=== PATIENT | female | born 1995 | race Caucasian/White ===

== ENCOUNTER 2018-11-13 00:07 | Outpatient (CLI) | payer OTHER ==
[~2018-11-13] VITALS: Ht 167.6 cm; Wt 86.0 kg
[2018-11-13 00:24] VITALS: BP 128/84
[2018-11-13] MEDS ORDERED: PRENTAB9 PO (00:27)
[2018-11-14] MEDS ORDERED: DIBU10OI TOP (17:41)
[2018-11-14] MEDS ORDERED: COLA100C5 PO (17:41)
[2018-11-14] MEDS ORDERED: ACET-683 PO (17:41)
[2018-11-14] MEDS ORDERED: IBUP80TA PO (17:41)
== END 2018-11-13 02:30 | disposition home or self-care (01) ==
LOC: M LDO 00:07
PROVIDERS: ATTEND Obstetrics & Gynecology
DX: O26.893 Other specified pregnancy related conditions, third trimester (principal); R10.30 Lower abdominal pain, unspecified; O26.853 Spotting complicating pregnancy, third trimester; Z3A.40 40 weeks gestation of pregnancy
CPT/HCPCS: 59025; G0378; G0463

== ENCOUNTER 2018-11-13 13:55 | Inpatient (IN) | payer OTHER ==
[~2018-11-13] VITALS: Ht 167.6 cm; Wt 85.9 kg
[2018-11-13] VITALS (10 sets, daily range): BP systolic 113–148; BP diastolic 59–88
[~2018-11-13 13:55] MED LIST: PRENTAB9 PO
[2018-11-13] MEDS ORDERED: LACTATED RINGER'S 1000 ML IV ONE (14:30)
[2018-11-13] MEDS ORDERED: LR 1,000 ML IV SCH (14:30)
--- NOTE | 2018-11-13 14:49 | HPE ---
DATE OF ADMISSION: 11/13/2018 HISTORY: This lady is a 23-year-old 5, para 1, abortus 3, last menstrual period (LMP) 02/15/2018, estimated date of confinement (EDC) 11/10/2018, at 40 and 4 weeks of gestation with history of having her membranes stripped and having [place] contractions. No vaginal bleeding or vaginal loss. PAST HISTORY: Spontaneous times three. 2015 at 40 weeks, 8 pounds 7 ounces male, induction of labor because of oligohydramnios. LABORATORY DATA: B positive, hepatitis negative, rubella immune. Varicella immune. Pap normal. Urine negative. Gonorrhea and chlamydia negative. 1-hour glucose 113 and group B Streptococcus (GBS) is negative. Blood pressure 124/84, respirations 16, pulse 116, temperature 97.9. Urine 10/20, pH 6 and negative. On examination, no distress. Symphysis fundus height is 40, vertex, category one strip, accelerations noted. No decelerations. Minimal contractions. Baseline variability was normal. Stretchy, 2 cm posterior, 50%, -3 station. The patient is not active labor, having [place] with a category one strip. Has a booked induction of labor on 11/17/2018. Discharge instructions were given and the patient was discharged undelivered.
[2018-11-13] MEDS ORDERED: FENTANYL 2MCG/ML ROPIVACAINE 0.2% IN 0.9% NACL 100ML IVBAG As Ordered ONE (14:54)
[2018-11-13 14:55] LABS: HEMATOCRIT 36.4 % (36.0-47.0); HEMOGLOBIN 12.1 g/dl (12.0-15.5); MEAN CORPUSCULAR HEMOGLOBIN 29.6 pg (27.0-33.0); MEAN CORPUSCULAR HGB CONC 33.2 g/dl (32.0-36.5); PLATELET COUNT, AUTOMATED 198 10^3/uL (150-450); RED BLOOD COUNT 4.09 10^6/uL (4.00-5.40); WHITE BLOOD COUNT 18.9 10^3/uL (4.0-10.0)
[2018-11-13] MEDS ORDERED: OXYTOCIN 30 UNITS IN 0.9% NaCl 500ML IV BAG (J2590) As Ordered ONE (15:06)
[2018-11-13] MEDS ORDERED: REFRIGERATOR IV KEYS XX PRN (16:15)
[2018-11-13] MEDS ORDERED: EPIDURAL/PCA KEYS XX PRN (16:15)
[2018-11-13] MEDS ORDERED: NALOXONE INJ 0.4 MG/1 ML VIAL (J2310) IV PRN (16:15)
[2018-11-13] MEDS ORDERED: ePHEDrine SULFATE 25 MG/5 ML(5MG/ML) SYRINGE IV PRN (16:15)
[2018-11-13] MEDS ORDERED: ONDANSETRON 4MG/2ML VIAL (J2405) IV PRN (16:15)
[2018-11-13] MEDS ORDERED: EPIDURAL COMMENT XX SCH (16:15)
[2018-11-13] MEDS ORDERED: OXYTOCIN DRIP 30 UNITS in APPROPRIATE DILUENT 1 EA IV SCH ×2 (16:15→18:00)
[2018-11-13] MEDS ORDERED: diphenhydrAMINE INJ 50MG/ML VIAL (J1200) IV PRN (16:15)
[2018-11-13] MEDS ORDERED: LACTATED RINGER'S 1000 ML IV PRN (16:15)
[2018-11-13] MEDS ORDERED: FENTANYL/ROPIVACAINE/NACL BAG 100 ML EPIDURAL SCH (16:15)
[2018-11-13 17:36] LABS: CORD GAS HCO3 V 22.3 MEQ/L; CORD GAS O2 SAT V 72.9 %; CORD GAS PCO2 V 40.9 mmHg; CORD GAS PH V 7.354 UNITS; CORD GAS PO2 V 32.4 mmHg; CORD GAS SBC V 21.3 MEQ/L; CORD GAS TCO2 V 23.5 MEQ/L
[2018-11-13 17:39] LABS: CORD GAS HCO3 A 25.5 MEQ/L; CORD GAS O2 SAT A 25.7 %; CORD GAS PCO2 A 65.6 mmHg; CORD GAS PH A 7.208 UNITS; CORD GAS PO2 A 17.3 mmHg; CORD GAS SBC A 19.5 MEQ/L; CORD GAS TCO2 A 27.5 MEQ/L
[2018-11-13] MEDS ORDERED: MOM 30ML SUSPENSION UDC PO PRN (17:45)
[2018-11-13] MEDS ORDERED: METHYLERGONOVINE MALEATE 0.2 MG TAB PO PRN (17:45)
[2018-11-13] MEDS ORDERED: IBUPROFEN 800 MG TAB PO PRN (17:45)
[2018-11-13] MEDS ORDERED: ACETAMINOPHEN TAB 650MG DOSE (2X325MG) PO PRN (17:45)
[2018-11-13] MEDS ORDERED: OXYTOCIN INJ 10 UNITS/ML VIAL (J2590) IV ONE (17:45)
[2018-11-13] MEDS ORDERED: RHOGAM 300 MCG (1500 IU) INJ (J2790) IM SCH (17:45)
[2018-11-13] MEDS ORDERED: DOCUSATE SODIUM 100 MG CAP PO PRN (17:45)
[2018-11-13] MEDS ORDERED: ANUSOL HC CREAM 30GM TOP PRN (17:45)
[2018-11-13] MEDS ORDERED: DIBUCAINE 1% OINTMENT 30GM TOP PRN (17:45)
[2018-11-13] MEDS ORDERED: miSOPROStol 100 MCG TAB (S0191) PR ONE (17:45)
[2018-11-13] MEDS ORDERED: MEASLES,MUMPS,RUBELLA VACCINE INJ (MMR-II) (90707) SC SCH (17:45)
[2018-11-13] MEDS ORDERED: IBUPROFEN 600 MG TAB PO PRN (17:45)
[2018-11-13] MEDS: ACETAMINOPHEN 500 MG TAB PO PRN (20:15)
--- NOTE | 2018-11-13 23:44 | HPE ---
DATE OF ADMISSION: 11/13/2018 This is a 23-year-old 5, para 1, aborta 3, last menstrual period (LMP) 02/15/2018, estimated date of confinement (EDC) 11/10/2018 at 40 and 5 of gestation, had a history of stripping membranes on Wednesday, had some [place] contractions. Presently, she is in active labor with spontaneous rupture of membranes clear liquid noon today. On pelvic examination, she is 5 cm at 70% effaced, vertex -3 station. PAST HISTORY: Spontaneous times 2014 at 40 weeks, 8 pounds 7 ounces male induced for an oligohydramnios. Labs are B+, hepatitis negative. Rubella immune. Varicella immune. Pap normal. Urine negative. Gonorrhea and chlamydia are negative. 1-hour glucose 113. GBS is negative. On examination, she is in significant distress. Category one strip. Blood pressure is 137/80, respirations 18, pulse 142, temperature 98.4. Plan of management from here is hydrate the patient, epidural as necessary and anticipate vaginal delivery. The patient accepts the risks and benefits of laboring and vaginal delivery as outlined with increased risk of hemorrhage, infection, increased risk of tachysystole, uterine rupture and the possibility of the baby ending up in the NICU. The rest examination unremarkable. Normocephalic, atraumatic. Neck: Full range of motion. Pupils equal and reactive to light. Distal pulses symmetric. No evidence of deep vein thrombosis (DVT), pulmonary emboli (PE) or superficial phlebitis. Chest is clear bilaterally bases. No wheezes or rhonchi. No costovertebral angle (CVA) tenderness. Abdomen soft. Uterus is not hard. Four quadrant bowel sounds are noted. Pelvic exam as mentioned. No evidence of deep vein thrombosis (DVT), pulmonary emboli (PE), superficial phlebitis. No nausea, vomiting, diarrhea or constipation. No shortness of breath. No arthralgia, myalgia or complaints of joint pain. We anticipate a precipitous delivery and will implement precautions as necessary.
[2018-11-14] MEDS ORDERED: OXYTOCIN INJ 10 UNITS/ML VIAL (J2590) As Ordered ONE (03:54)
[2018-11-14] MEDS ORDERED: miSOPROStol 200 MCG TAB (S0191) As Ordered ONE (03:54)
[2018-11-14] MEDS: ACETAMINOPHEN 500 MG TAB PO PRN (05:07)
--- NOTE | 2018-11-14 05:39 | IPN ---
DATE OF VISIT: 11/13/2018 This lady was admitted at 5 cm dilatation with active labor. After epidural her contractions spaced out to 5-7-8 minutes apart, category I strip. EXAMINATION: On examination she was about 7-8 cm, definitely ruptured membranes, vertex well applied to the cervix in the occiput anterior (OA)position. We are going to augment with Pitocin and anticipate vaginal delivery. Category I strip. The patient expressed understanding of the plan of care. cc: US[employer]IENCE DES[employer] Fareed SAENZ
[2018-11-14 06:14] VITALS: BP 105/58
[2018-11-14 07:24] LABS: HEMATOCRIT 33.3 % (36.0-47.0); HEMOGLOBIN 11.2 g/dl (12.0-15.5); MEAN CORPUSCULAR HEMOGLOBIN 31.3 pg (27.0-33.0); MEAN CORPUSCULAR HGB CONC 33.6 g/dl (32.0-36.5); PLATELET COUNT, AUTOMATED 174 10^3/uL (150-450); RED BLOOD COUNT 3.58 10^6/uL (4.00-5.40); WHITE BLOOD COUNT 12.9 10^3/uL (4.0-10.0)
[2018-11-14] MEDS ORDERED: PRENATAL VITAMINS CHEWABLE TABLET PO SCH (09:00)
[2018-11-14 10:00] VITALS: BP 108/52
--- NOTE | 2018-11-14 11:28 | DN ---
DATE OF DELIVERY: 11/13/2018 This lady was admitted in spontaneous labor, had an epidural in place, delivered over an intact perineum a live female 9 pounds 1 ounce, 4110 grams, scores of nine and nine at 1 and 5 minutes respectively. Arterial and venous pH were performed. She had a bit of uterine atony because of the large size of the baby and a precipitousness of the delivery. Placenta delivered spontaneously thereafter. Three-vessel cord. Membranes and tissues intact. We massaged the uterus and after a while elected to give her Cytotec 1000 mg per rectum. Again evaluation digital sterile examination of the uterus was swept through there was no evidence of debris or tissue or clots or trailing. Eventually with vigorous massage, the uterus did contract down with the Cytotec and the Pitocin running. The arterial pH was 7.20, base excess -4.0, venous pH 7.35, base excess -3.0. We reviewed the anatomy. The vagina was normal. No tears or lacerations. Anterior, posterior and lateral [place] were intact. Sphincter was intact. The patient and baby tolerated procedure well. The baby did have terminal meconium and voiding at delivery.
--- NOTE | 2018-11-14 12:33 | IPN ---
DATE: 11/14/2018 This lady is a 23-year-old 5 now para 2 admitted in spontaneous labor, epidural in place, spontaneous vaginal delivery female, 9 pounds 1 ounce, 4110 grams, scores of 9 and 9 at 1 and 5 inches, respectively. Arterial pH 7.20, base excess -4.0. Venous pH 7.35, base excess -3.0. Her vital signs today: her blood pressure is 105/58, respirations 16, pulse 86, temperature 97.7. We discussed phlebitis, cystitis, mastitis, endometritis, cellulitis, diet, exercise, pain management, perineal and breast care. 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 She was given Cytotec 1000 mg plus an extra bag of Pitocin. The uterus is well contracted, 2 below. Lochia is moderate. Four quadrant bowel sounds are noted. She has no rashes, lesions or pruritus. No arthralgia, myalgia. No complaint joint pain. No complaint cough, wheeze, shortness breath or dyspnea on exertion. No nausea, vomiting, diarrhea or constipation. She has no evidence of DVT, PE or superficial phlebitis. Chest is clear bilaterally to the bases. No wheezes or rhonchi. She is planning on bottle feeding and not breast-feeding. Our plan of management is at discharge tomorrow morning. Contraceptive pills will be discussed and will be given for 6-week checkup. The rest of the discharge medications will be given tomorrow prior to discharge. In summary, we have a term gestation, delivered a live female infant.
[2018-11-14 14:00] VITALS: BP 109/62
[2018-11-14] MEDS ORDERED: COLA100C5 PO (17:41)
[2018-11-14] MEDS ORDERED: ACET-683 PO (17:41)
[2018-11-14] MEDS ORDERED: DIBU10OI TOP (17:41)
[2018-11-14] MEDS ORDERED: IBUP80TA PO (17:41)
[2018-11-14 18:00] VITALS: BP 108/57
== END 2018-11-14 19:15 | disposition home or self-care (01) | DRG 807 ==
LOC: M LDO 13:55 → M LDI 14:15 → M OBS 20:36
PROVIDERS: ADMIT Obstetrics & Gynecology; ATTEND Obstetrics & Gynecology
PROC: 10E0XZZ Delivery of Products of Conception, External Approach (ICD-10-PCS; principal; 2018-11-13)
DX: O62.3 Precipitate labor (principal); Z37.0 Single live birth; Z3A.40 40 weeks gestation of pregnancy; O48.0 Post-term pregnancy; O62.2 Other uterine inertia; O36.63X0 Maternal care for excessive fetal growth, third trimester, not applicable or unspecified

== ENCOUNTER 2018-12-19 07:14 | Emergency (ER) | payer OTHER ==
[~2018-12-19] VITALS: Ht 167.6 cm; Wt 75.0 kg
[~2018-12-19 07:14] MED LIST changes: +ACET-683 PO; +COLA100C5 PO; +DIBU10OI TOP; +IBUP80TA PO
[2018-12-19] MEDS ORDERED: ALLE10TA62 PO (12:10)
[2018-12-19 12:19] VITALS: BP 129/85
--- NOTE | 2018-12-19 13:41 | REP ---
REASON: Cough. PRIORS: None. FINDINGS: The superior mediastinal structures are midline. The cardiac silhouette is unremarkable in size, shape, and position. The diaphragmatic surfaces of the lungs are regular, and the costophrenic angles are clear. The pulmonary bradley are clear. The imaged osseous structures are intact. IMPRESSION: There is no acute cardiopulmonary disease. Electronically Signed by Jonathan Padron DO 12/19/2018 02:06 P
== END 2018-12-19 12:21 | disposition home or self-care (01) ==
LOC: M ED 07:14
DX: R05 Cough (principal); R09.89 Other specified symptoms and signs involving the circulatory and respiratory systems

== ENCOUNTER 2018-12-21 02:44 | Emergency (ER) | payer OTHER ==
[~2018-12-21] VITALS: Ht 167.6 cm; Wt 77.3 kg
[~2018-12-21 02:44] MED LIST changes: +ALLE10TA62 PO
[2018-12-21 03:16] LABS: HEMATOCRIT 39.9 % (36.0-47.0); HEMOGLOBIN 13.2 g/dl (12.0-15.5); MEAN CORPUSCULAR HEMOGLOBIN 30.6 pg (27.0-33.0); MEAN CORPUSCULAR HGB CONC 33.1 g/dl (32.0-36.5); MEAN CORPUSCULAR VOLUME 92.4 fl (80.0-96.0); PLATELET COUNT, AUTOMATED 234 10^3/uL (150-450); RED BLOOD COUNT 4.32 10^6/uL (4.00-5.40); WHITE BLOOD COUNT 8.2 10^3/uL (4.0-10.0)
[2018-12-21 03:32] LABS: HCG, SERUM QUALITATIVE NEGATIVE (NEGATIVE)
[2018-12-21 04:45] VITALS: BP 117/72
== END 2018-12-21 04:45 | disposition home or self-care (01) ==
LOC: M ED 02:44
DX: N92.0 Excessive and frequent menstruation with regular cycle (principal)